=== PATIENT | female | born 1990 | race Caucasian/White ===

== ENCOUNTER 2024-01-22 15:08 | Emergency (ER) | payer BC, OTHER ==
[~2024-01-22] VITALS: Ht 165.1 cm; Wt 62.6 kg
--- NOTE | 2024-01-22 15:24 | NUR ---
PT IS IN ROOM #1A. DR PRICE EVALUATED THE PT.
[2024-01-22] MEDS ORDERED: ONDANSETRON ODT 4 MG TAB.RAPDIS ONE (16:57)
[2024-01-22] MEDS ORDERED: KETOROLAC TROMETHAMINE 60 MG INJ IM ONE (16:57)
[2024-01-22] MEDS ORDERED: HYDROMORPHONE 2 MG/1 ML DISP.SYRIN ONE ×2 (16:57→17:40)
[2024-01-22] MEDS ORDERED: HYDR-3980 PO (17:03)
[2024-01-22] MEDS ORDERED: METH-807 PO (17:03)
[2024-01-22] MEDS: HYDROMORPHONE 1 MG/1 ML DISP.SYRIN IM ONE ×2 (17:05→17:44)
[2024-01-22] MEDS: KETOROLAC TROMETHAMINE 60 MG INJ IM ONE (17:05)
[2024-01-22] MEDS: ONDANSETRON ODT 4 MG TAB.RAPDIS SL ONE (17:05)
--- NOTE | 2024-01-22 17:59 | NUR ---
PT WAS D/C'd TO HOME. D/C INSTRUCTIONS GIVEN TO THE PT BY DR PRICE.
[2024-01-22 18:02] VITALS: BP 128/68; TEMP 98.2; O2SAT 98
== END 2024-01-22 18:03 | disposition home or self-care (01) ==
LOC: ER 15:09
DX: S39.012A Strain of muscle, fascia and tendon of lower back, initial encounter (principal); Z79.891 Long term (current) use of opiate analgesic; Z79.899 Other long term (current) drug therapy; X50.0XXA Overexertion from strenuous movement or load, initial encounter; Y93.89 Activity, other specified; Y92.89 Other specified places as the place of occurrence of the external cause; Y99.8 Other external cause status
CPT/HCPCS: 99284; 96372 ×2; J1885; J1170 ×2; A4606; A4663; Q0162

== ENCOUNTER 2024-07-31 22:05 | Emergency (ER) | payer BC, OTHER ==
[~2024-07-31 22:05] MED LIST: HYDR-3980 PO; METH-807 PO
== END 2024-07-31 22:58 | disposition left against medical advice (07) ==
LOC: ER 22:05
DX: R04.0 Epistaxis (principal); Z53.21 Procedure and treatment not carried out due to patient leaving prior to being seen by health care provider

== ENCOUNTER 2024-10-09 16:25 | Emergency (ER) | payer BC ==
[~2024-10-09] VITALS: Ht 165.1 cm; Wt 64.9 kg
[2024-10-09] MEDS ORDERED: HYDROMORPHONE 1 MG/1 ML DISP.SYRIN ONE ×2 (16:51→18:05)
[2024-10-09] MEDS: HYDROMORPHONE 1 MG/1 ML DISP.SYRIN IM ONE ×2 (16:58→18:12)
[2024-10-09] MEDS ORDERED: ONDANSETRON 4 MG/2 ML VIAL ONE (22:00)
[2024-10-09] MEDS ORDERED: MORPHINE SULFATE 4 MG/1 ML DISP.SYRIN ONE ×2 (22:00→23:50)
[2024-10-09] MEDS: ONDANSETRON 4 MG/2 ML VIAL IV ONE (22:05)
[2024-10-09] MEDS: MORPHINE SULFATE 4 MG/1 ML DISP.SYRIN IV ONE ×2 (22:05→23:50)
[2024-10-09 23:48] VITALS: O2SAT 98
== END 2024-10-09 23:59 ==
LOC: ER 16:53
DX: S82.852A Displaced trimalleolar fracture of left lower leg, initial encounter for closed fracture (principal); W10.9XXA Fall (on) (from) unspecified stairs and steps, initial encounter; Y93.89 Activity, other specified; Y92.89 Other specified places as the place of occurrence of the external cause; Y99.8 Other external cause status
CPT/HCPCS: 29515; 73610; 96372; 96374; 96375; 96376; 99285; J1171; J2270; J2405; A4606; A4663